=== PATIENT | female | born 1985 | race Caucasian/White ===

== ENCOUNTER 2017-01-22 13:30 | Emergency (ER) | payer MEDICAID ==
[~2017-01-22] VITALS: Ht 160 cm; Wt 58.0 kg
[2017-01-22] MEDS ORDERED: IBUPROFEN 600 MG TABLET PO ONE (14:00)
[2017-01-22 15:07] VITALS: BP 124/65
== END 2017-01-22 15:18 | disposition home or self-care (01) ==
LOC: EMS 13:32
DX: S60.222A Contusion of left hand, initial encounter (principal); F17.210 Nicotine dependence, cigarettes, uncomplicated; W23.0XXA Caught, crushed, jammed, or pinched between moving objects, initial encounter; Y93.89 Activity, other specified; Y92.89 Other specified places as the place of occurrence of the external cause; Y99.8 Other external cause status
CPT/HCPCS: 99284; 99406